=== PATIENT | female | born 1995 | race African-American/Black ===

== ENCOUNTER 2016-05-11 23:18 | Emergency (ER) | payer OTHER ==
[~2016-05-11] VITALS: Ht 170.2 cm; Wt 69.0 kg
[2016-05-11 23:22] VITALS: TEMP 36.8; Ht 170.2 cm; Wt 69.0 kg
[2016-05-11] MEDS ORDERED: SODIUM CHLORIDE 0.9% 1000ML 2,000 ML IV STA (23:35)
[2016-05-11] MEDS ORDERED: LORAZEPAM 2 MG/ML 1 ML VIAL IV STA (23:35)
--- NOTE | 2016-05-11 23:39 | EMERGENCY ROOM VISIT NOTE ---
History Report prepared by Piloibe: Theodora Perez Under the Supervision of: Dr. Meliton Contreras M.D. First contact with patient: 23:30 Chief Complaint: OVERDOSE (ACCIDENTAL) Stated Complaint: ATE AN EDIBLE @4HR AGO,REACTION History of Present Illness The patient is a 21 year old female who presents to the Emergency Room to be evaluated for an overdose this evening. Per patient's friend, the patient ate a weed brownie about 3.5 hours ago and was initially acting her normal self. 40 minutes ago, the patient started reacting to the weed brownie. Her friend is unsure if anyone else who ate a brownie from the same batch had the same reaction. Currently, the patient complains of feeling very thirsty. The patient did not drink any alcohol tonight. Denies headache, chest pain, shortness of breath, or other complaints. Source of History: patient, friend Onset: this evening Position: other (global) Quality: other (weed brownie overdose) Timing: constant Associated Symptoms: No SOB, No chest pain, No headache Review of Systems See HPI for pertinent positives & negatives. A total of 10 systems reviewed and were otherwise negative. Past Medical & Surgical Medical Problems: (1) Acute anxiety Family History No pertinent family history stated. Social History Smoking Status: Never Smoker Housing Status: lives with roommate Occupation Status: [employer] student Current/Historical Medications No Active Prescriptions or Reported Meds Allergies Coded Allergies: No Known Allergies (Unverified , 05/11/16) Physical Exam Vital Signs Date Time Temp Pulse Resp B/P Pulse Ox O2 Delivery O2 Flow Rate FiO2 05/12/16 07:21 122 17 122/80 99 05/12/16 07:19 120 05/12/16 06:30 129 18 134/75 98 Room Air 05/12/16 06:00 135 18 138/81 100 Room Air 05/12/16 04:09 133 18 118/76 99 05/12/16 03:07 104 05/12/16 02:00 113 16 85/45 96 Room Air 05/12/16 01:30 109 16 88/45 97 Room Air 05/12/16 01:09 97 Room Air 05/12/16 01:00 136 26 103/71 98 Room Air 05/12/16 00:30 114 16 135/69 98 Room Air 05/12/16 00:00 137 21 99 Room Air 05/11/16 23:36 120 05/11/16 23:22 36.8 144 20 128/69 99 Room Air Physical Exam GENERAL: Patient is heavily under the influence of mind altering drug. Well appearing and in no acute distress. HEAD: No evidence of Trauma. AT/NC EYES: Injected conjunctiva. Normal EOM. Pupils equal/reactive. ENT: Mucous membranes moist, no nasal congestion, . NECK: No step-offs, no adenopathy, no meningismus, trachea is midline. LUNGS: No dyspnea. Clear to auscultation and equal bilaterally. No wheeze, no rhonchi. HEART: Regular rate and rhythm. No murmurs, rubs, gallops appreciated. ABDOMEN: Soft, nontender, bowel sounds positive, no masses appreciated, no peritonitis. BACK: No midline tenderness, no CVA tenderness EXTREMITIES: Normal motion all extremities, no cyanosis, no edema. NEUROLOGIC: Clear, periodic speech. Patient unable to give answers other than yes or no. No acute motor or sensory deficits, no focal weakness, cranial nerves grossly intact. SKIN: No rash, no jaundice, no diaphoresis. Medical Decision & Procedures Laboratory Results 05/12/16 02:21 Red Blood Count 4.42, Mean Corpuscular Volume 81.4, Mean Corpuscular Hemoglobin 26.7, Mean Corpuscular Hemoglobin Concent 32.8, Mean Platelet Volume 10.7, Neutrophils (%) (Auto) 81.0, Lymphocytes (%) (Auto) 12.4, Monocytes (%) (Auto) 5.9, Eosinophils (%) (Auto) 0.2, Basophils (%) (Auto) 0.2, Neutrophils # (Auto) 7.95, Lymphocytes # (Auto) 1.22, Monocytes # (Auto) 0.58, Eosinophils # (Auto) 0.02, Basophils # (Auto) 0.02 05/12/16 00:25 Test 05/11/16 01:05 05/12/16 00:25 05/12/16 02:21 05/12/16 05:56 Urine Color YELLOW Urine Appearance CLEAR (CLEAR) Urine pH 6.0 (4.5-7.5) Urine Specific [place] 1.023 (1.000-1.030) Urine Protein 2+ (NEG) Urine Glucose (UA) NEG (NEG) Urine Ketones TRACE (NEG) Urine Occult Blood NEG (NEG) Urine Nitrite NEG (NEG) Urine Bilirubin NEG (NEG) Urine Urobilinogen NEG (NEG) Urine Leukocyte Esterase NEG (NEG) Urine WBC (Auto) 1-5 /hpf (0-5) Urine RBC (Auto) 0-4 /hpf (0-4) Urine Hyaline Casts (Auto) 1-5 /lpf (0-5) Urine Epithelial Cells (Auto) >30 /lpf (0-5) Urine Bacteria (Auto) NEG (NEG) Urine Renal Epithelial Cells /lpf (0-5) Urine Mucus PRESENT (NONE PRSENT) Urine Opiates Screen NEG (NEG) Urine Methadone, Qualitative NEG (NEG) Urine Barbiturates NEG (NEG) Urine Phencyclidine (PCP) Level NEG (NEG) Ur Amphetamine/Methamphetamine NEG (NEG) MDMA (Ecstasy) Screen NEG (NEG) Urine Benzodiazepines Screen NEG (NEG) Urine Cocaine Metabolite NEG (NEG) Urine Marijuana (THC) POS (NEG) Est Creatinine Clear Calc Drug Dose 57.7 ml/min Estimated GFR () 57.1 Estimated GFR (Non- 49.3 BUN/Creatinine Ratio 11.5 (10-20) Calcium Level 8.4 mg/dl (8.5-10.1) Total Bilirubin 0.2 mg/dl (0.2-1) Direct Bilirubin mg/dl (0-0.2) Aspartate Amino Transf (AST/SGOT) 15 U/L (15-37) Alanine Aminotransferase (ALT/SGPT) 33 U/L (12-78) Alkaline Phosphatase 63 U/L (45-117) Troponin I < 0.015 ng/ml (0-0.045) Total Protein 7.8 gm/dl (6.4-8.2) Albumin 3.9 gm/dl (3.4-5.0) Human Chorionic Gonadotropin, Qual NEG (NEG) Chemistry Specimen Hemolysis Acetaminophen Level < 2 ug/ml (10-30) Ethyl Alcohol mg/dL < 3.0 mg/dl (0-3) White Blood Count 9.82 K/uL (4.8-10.8) Red Blood Count 4.42 M/uL (4.2-5.4) Hemoglobin 11.8 g/dL (12.0-16.0) Hematocrit 36.0 % (37-47) Mean Corpuscular Volume 81.4 fL (80-100) Mean Corpuscular Hemoglobin 26.7 pg (25-34) Mean Corpuscular Hemoglobin Concent 32.8 g/dl (32-36) Platelet Count 176 K/uL (130-400) Mean Platelet Volume 10.7 fL (7.4-10.4) Neutrophils (%) (Auto) 81.0 % Lymphocytes (%) (Auto) 12.4 % Monocytes (%) (Auto) 5.9 % Eosinophils (%) (Auto) 0.2 % Basophils (%) (Auto) 0.2 % Neutrophils # (Auto) 7.95 K/uL (1.4-6.5) Lymphocytes # (Auto) 1.22 K/uL (1.2-3.4) Monocytes # (Auto) 0.58 K/uL (0.11-0.59) Eosinophils # (Auto) 0.02 K/uL (0-0.5) Basophils # (Auto) 0.02 K/uL (0-0.2) RDW Standard Deviation 41.8 fL (36.4-46.3) RDW Coefficient of Variation 13.8 % (11.5-14.5) Immature Granulocyte % (Auto) 0.3 % Immature Granulocyte # (Auto) 0.03 K/uL (0.00-0.02) Total Creatine Kinase 100 U/L (26-192) Thyroid Stimulating Hormone (TSH) 1.010 uIu/ml (0.300-4.500) Bedside Hemoglobin 13.3 g/dl (12.0-16.0) Bedside Hematocrit 39 % (37-47) Bedside Sodium 142 mEq/L (135-144) Bedside Potassium 4.4 mEq/L (3.3-5.0) Bedside Chloride 110 mEq/L (101-112) Bedside Total CO2 20 mEq/l (24-31) Anion Gap 18.0 mmol/L (16-25) Bedside Blood Urea Nitrogen 15 mg/dl (7-18) Bedside Creatinine 1.0 mg/dl (0.6-1.3) Bedside Glucose (other) 122 mg/dl (70-99) Bedside Ionized Calcium (Rakel) 1.08 mmol/l (1.12-1.32) Test 05/12/16 06:03 Bedside Troponin I 0.000 ng/ml (0-0.045) Laboratory results as reviewed by me. Medications Administered Medications (Trade) Dose Ordered Sig/Roshan Route Start Time Stop Time Status Last Admin Dose Admin Sodium Chloride (Nss 1000ml) 2,000 ml @ 999 mls/hr Q2H1M STAT IV 05/11/16 23:35 05/12/16 01:35 DC 05/12/16 00:36 999 MLS/HR Lorazepam 2 mg 2 mg NOW STAT IV 05/11/16 23:35 05/11/16 23:38 DC 05/12/16 00:36 2 MG Sodium Chloride 1,000 ml @ 125 mls/hr Q8H STAT IV 05/12/16 02:46 05/12/16 10:45 05/12/16 02:46 125 MLS/HR Sodium Chloride (Nss 1000ml) 1,000 ml @ 999 mls/hr Q1H1M STAT IV 05/12/16 06:04 05/12/16 07:04 DC 05/12/16 06:10 999 MLS/HR ECG Indication: toxicologic Rate (beats per minute): 134 Rhythm: sinus tachycardia Findings: no acute ischemic change, no ectopy Change: Repeat in-hospital EKG: sinus tachycardia at 132 BPM. No ectopy or ischemia. When compared to initial EKG, heart rate has improved. ED Course 2331: The patient was evaluated in room B9. A complete history and physical exam was performed. 2335: Ordered Ativan Inj 2 mg IV, NSS 2000 ml @ 999 mls/hr IV. 0033: I reassessed the patient. Her status was unchanged. 0110: I reassessed the patient. She was sleeping. 0246: Ordered NSS 1000 ml @ 125 mls/hr IV. 0550: I reassessed the patient. At this time she was awake, alert, and oriented and denies any further symptoms; however, her heart rate is 156. 0604: Ordered NSS 1000 ml @ 999 mls/hr IV. 0830: Reevaluated the patient. Discussed results and discharge instructions: She verbalized understanding and agreement. The patient is ready for discharge. Medical Decision Differential: Suicide Attempt, Mood Disorder, Poisoning, Medication OD, Narcotic OD, Tylenol OD, Salicylated OD, Prolonged QTc, Metabolic/Electrolyte imbalance, Trauma, Rhabdo, Infectious, amongst other pathologies entertained. 21 yr old female arrives altered, anxious and admitting trying marijuana for first time. Quite tachycardic on arrival thus given all of this did feel that increased work-up beyond what would usually be done in patient intoxicated on marijuana. I suspect that marijuana may have been laced with something causing increased agitation/anxiety along with the tachycardia. No neuro deficits appreciated, normal pupils and answering questions, thus holding off on CT as would prefer to avoid radiation if possible. EKG is a sinus tach without significant abnormalities. Labs other then Cr unremarkable. With fluids and rest HR going down. She does have mildly elevated Cr though with normal CK felt that fluids reasonable for this and on repeat Cr trending down. Repeat trop negative. HR in 90s on final repeat evaluation and she is feeling well. Discussed dangers of illicit drug use. Discussed RTED if worsening or other concerns. Answering questions appropriately and in no distress. She will need to follow up with PCP in next week for repeat Cr check. Impression Primary Impression: Marijuana intoxication Additional Impressions: Dehydration Accidental marijuana overdose Scribe Attestation The scribe's documentation has been prepared under my direction and personally reviewed by me in its entirety. I confirm that the note above accurately reflects all work, treatment, procedures, and medical decision making performed by me. Departure Information Dispostion Home / Self-Care Prescriptions No Active Prescriptions or Reported Meds Referrals No Doctor, Assigned (PCP) Patient Instructions My [facility] Additional Instructions Do not take illicit/illegal drugs as these can cause unpredictable side effects and may also be laced with other drugs causing severe reactions. Keep well hydrated over the next few days Follow up with your primary care provider in 1 week for recheck of your kidneys as you were quite dehydrated with minor insult to the kidneys on lab checks which resolved after fluids here. Rest and avoid over exertion during the next 48 hours. Problem Qualifiers Primary Impression: Marijuana intoxication Complication of substance-induced condition: with delirium Qualified Codes: F12.921 - Cannabis use, unspecified with intoxication delirium Additional Impressions: Accidental marijuana overdose Encounter type: initial encounter Qualified Codes: T40.7X1A - Poisoning by cannabis (derivatives), accidental (unintentional), initial encounter
[2016-05-12 01:09] VITALS: O2SAT 97
[2016-05-12 01:12] LABS: PREG INTERNAL NEGATIVE QC NEG CLEAR BACKGROUND; PREG INTERNAL POSITIVE QC POS CONTROL LINE
[2016-05-12 01:21] LABS: URINE APPEARANCE CLEAR (CLEAR); URINE BILIRUBIN NEG (NEG); URINE COLOR YELLOW; URINE EPITHELIAL CELL AUTO >30 /lpf (0-5); URINE NITRITE NEG (NEG); URINE SPECIFIC GRAVITY 1.023 (1.000-1.030); UROBILINOGEN NEG (NEG); ZZUR CULT IF INDIC CLEAN CATCH NO
[2016-05-12 01:25] LABS: MANUAL MICROSCOPIC REQUIRED? NO; REVIEW REQ? YES
[2016-05-12 01:30] LABS: ALKALINE PHOSPHATASE 63 U/L (45-117); ALT/SGPT 33 U/L (12-78); AST/SGOT 15 U/L (15-37); BLOOD UREA NITROGEN 17 mg/dl (7-18); BUN/CREATININE RATIO 11.5 (10-20); CALCIUM 8.4 mg/dl (8.5-10.1); CARBON DIOXIDE 23 mmol/L (21-32); CHLORIDE 107 mmol/L (98-107); GLUCOSE 133 mg/dl (70-99); POTASSIUM 3.7 mmol/L (3.5-5.1); SODIUM 142 mmol/L (136-145)
[2016-05-12 01:39] LABS: BENZODIAZEPINE, URINE NEG (NEG); COCAINE,URINE NEG (NEG); PHENCYCLIDINE, URINE NEG (NEG)
[2016-05-12 02:16] LABS: URINE MUCUS PRESENT (NONE PRSENT)
[2016-05-12 02:30] LABS: BASO % 0.2 %; BASO ABS # 0.02 K/uL (0-0.2); COMPLETE YES; EOS % 0.2 %; IG% 0.3 %; LYMPH % 12.4 %; LYMPH ABS # 1.22 K/uL (1.2-3.4); MEAN CELL VOLUME 81.4 fL (80-100); MEAN CORPUSCULAR HEMOGLOBIN 26.7 pg (25-34); MEAN CORPUSCULAR HGB CONC 32.8 g/dl (32-36); MEAN PLATELET VOLUME 10.7 fL (7.4-10.4); MONO % 5.9 %; PLATELET COUNT 176 K/uL (130-400); RED BLOOD COUNT 4.42 M/uL (4.2-5.4); WHITE BLOOD COUNT 9.82 K/uL (4.8-10.8)
[2016-05-12] MEDS ORDERED: SODIUM CHLORIDE 0.9% 1000ML 1,000 ML IV STA ×2 (02:46→06:04)
[2016-05-12 03:04] LABS: THYROID STIMULATING HORMONE 1.01 uIu/ml (0.300-4.500)
[2016-05-12 06:16] LABS: ISTAT HEMOGLOBIN 13.3 g/dl (12.0-16.0); ISTAT IONIZED CALCIUM 1.08 mmol/l (1.12-1.32)
[2016-05-12 07:21] VITALS: BP 122/80; PULSE 122; O2SAT 99
[2016-05-17 23:37] LABS: SYNTHETIC CANNABINOIDS QL URIN NEGATIVE (Negative)
== END 2016-05-12 07:22 | disposition home or self-care (01) ==
LOC: C.EDB 23:21
DX: T40.7X1A Poisoning by cannabis (derivatives), accidental (unintentional), initial encounter (principal); E86.0 Dehydration